=== PATIENT | male | born 1990 | race Caucasian/White ===

== ENCOUNTER 2017-12-31 21:55 | Inpatient (IN) | payer OTHER ==
[~2017-12-31] VITALS: Ht 190.5 cm; Wt 124.3 kg
[~2017-12-31 21:55] MED LIST: MOTRIN800 MG PO; VICODIN 300 MG-1 TAB PO
[2017-12-31 22:52] LABS: ABSOLUTE BASOPHIL COUNT 0.1 /CUMM (0.0-0.2); ABSOLUTE EOSINOPHIL COUNT 0 /CUMM (0.0-0.7); ABSOLUTE GRANULOCYTE CT 9.4 /CUMM (1.4-6.5); ABSOLUTE LYMPH COUNT 1.7 /CUMM (1.2-3.4); BASOPHIL % 0.8 % (0.0-2.0); EOSINOPHIL % 0.2 % (0-5); GRANULOCYTE % 76.7 % (42.2-75.2); HEMATOCRIT 43.7 % (42-52); MEAN CORPUSCULAR HGB 29.3 PG (27.0-31.0); MEAN CORPUSCULAR HGB CONC 33.7 G/DL (33.0-37.0); MEAN CORPUSCULAR VOLUME 87.1 FL (80.0-94.0); MEAN PLATELET VOLUME 8.9 FL (7.4-10.4); PLATELET COUNT 352 /CUMM (130-400); RBC DISTRIBUTION WIDTH 12.8 % (11.5-14.5); RED BLOOD CELL CT 5.02 /CUMM (4.70-6.10); WHITE BLOOD CELL COUNT 12.2 /CUMM (4.8-10.8)
--- NOTE | 2017-12-31 22:55 | ED PSYCHIATRIC COMPLAINT ---
History of Present Illness General Chief Complaint: Psychiatric Related Complaint Stated Complaint: +SI STATEMENTS AND ?DRANK ANTIFREEZE PER MOM Source: patient, family, old records Exam Limitations: no limitations Vital Signs & Intake/Output Vital Signs & Intake/Output Vital Signs Date Time Temp Pulse Resp B/P B/P Pulse O2 O2 Flow FiO2 Mean Ox Delivery Rate 01/01 1142 98.3 72 18 148/75 97 Room Air 01/01 1003 98.0 88 18 128/74 99 Room Air 01/01 0726 97.1 92 18 135/82 98 Room Air 12/31 2333 98.3 71 18 161/73 96 Room Air 12/31 2331 97 Room Air 12/31 2200 98.5 59 18 158/75 96 Room Air ED Intake and Output 01/01 0000 12/31 1200 Intake Total Output Total 100 Balance -100 Output, Urine 100 Patient 285 lb Weight Weight Reported by Patient Measurement Method Allergies Uncoded Allergies: WHOOPING COUGH VACCINE (SWELLING 12/23/13) Triage Note: PT TO ED C/O +SI THOUGHTS WITH NO PLAN, +HI THOUGHTS WITH NO PLAN "I WOULD KILL THE BAD PEOPLE" DENIES ETOH, BUT THEN STATES DOES NOT REMEMBER. MOM STATES "HE MAY OR MAY NOT HAVE DRANK ANTIFREEZE TODAY" WHEN ASKED IF HE DID, PT STATES "I DON'T REMEMBER" Triage Nurses Notes Reviewed? yes Onset: several months Duration: constant, continues in ED, getting worse Timing: recent history Severity: severe Associated Symptoms: impaired concentration, insomnia, suicidal ideation HPI: Patient suffers from autism. Several months prior to admission mother reports he has had increasing sadness feeling alone. 2 weeks prior to admission his mother notes his sadness is increased. Prior to admission she found him outside an empty bottle of antifreeze. He does not recall drinking the antifreeze. Mom reports he has had thoughts of suicide and killing bad people. He denies fever chills nausea vomiting diarrhea abdominal pain chest pain shortness breath headache dysuria rash bleeding hallucination. (Jackson Mendoza MD) Past History Travel History Traveled to [place] past 21 day No Medical History Any Pertinent Medical History? see below for history Respiratory: asthma Psychiatric: anxiety, depression Surgical History Surgical History: non-contributory Psychosocial History What is your primary language Guinean Tobacco Use: Never used ETOH Use: occasional use Illicit Drug Use: marijuana, MUSHROOMS Family History Hx Contributory? No (Jackson Mendoza MD) Review of Systems Review of Systems Constitutional: Reports: no symptoms. EENTM: Reports: no symptoms. Respiratory: Reports: no symptoms. Cardiovascular: Reports: no symptoms. GI: Reports: no symptoms. Genitourinary: Reports: no symptoms. Musculoskeletal: Reports: no symptoms. Skin: Reports: no symptoms. Neurological/Psychological: Reports: see HPI, anxiety, cognitive dysfunction, confusion, depressed, emotional problems. Hematologic/Endocrine: Reports: no symptoms. Immunologic/Allergic: Reports: no symptoms. All Other Systems: Reviewed and Negative (Jackson Mendoza MD) Physical Exam Physical Exam General Appearance: well developed/nourished, alert, awake, anxious, moderate distress, obese Head: atraumatic, normal appearance Eyes: Bilateral: normal appearance, PERRL, EOMI. 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 yes 1 Depression/Hopelessness? yes 2 Previous Attempts/Psych Care yes 1 Rational Thinking Loss? yes 2 Single//? yes 1 Organized/Serious Attempt yes 2 Social Support? has support 0 Stated Future Intent? yes 2 Total 11 SAD PERSONS Done? yes (Jackson Mendoza MD) Progress Differential Diagnosis: drug intoxication, drug overdose, drug withdrawal, electrolyte abnormality, hypoglycemia Plan of Care: Orders Procedure Date/time Status URINALYSIS 01/02 600 Active TSH REFLEX 01/02 600 Active LIPID PANEL 01/02 600 Active GLYCOSYLATED HGB 01/02 600 Active VITAMIN B12 01/02 600 Active Regular Diet 01/01 L Active Regular Diet 01/01 B Complete Patient Data - inpatient psych 01/01 1054 Active Admit to inpatient psych 01/01 1054 Active Continuous Observation Monitor 01/01 0640 Active Continuous Observation Monitor 01/01 0240 Active Vital Signs 01/01 UNK Active Activity/Ambulation 01/01 UNK Active Add-on Test (ER Only) 12/31 2324 Active Add-on Test (ER Only) 12/31 2310 Active Continuous Observation Monitor 12/31 224 Active ED CRISIS PSYCH CONSULT 12/31 224 Active URINE DRUG SCREEN FOR ER ONLY 12/31 2237 Complete URINALYSIS 12/31 2237 Complete ACETOMINOPHEN 12/31 2237 Complete SALICYLATE 12/31 2237 Complete ETHANOL 12/31 2237 Complete COMPREHENSIVE METABOLIC PANEL 12/31 2237 Complete CBC WITHOUT DIFFERENTIAL 12/31 2237 Complete ACETONE 12/31 2237 Complete LACTIC ACID 12/31 2229 Complete EKG 12/31 2217 Active Current Medications Sig/Lion Start time Last Medication Dose Stop Time Status Admin Benztropine Mesylate 1 MG Q6P PRN 01/01 1100 UNVr (Cogentin 1 MG Tablet) Benztropine Mesylate 1 MG Q6P PRN 01/01 1100 UNVr (Cogentin) Gabapentin 300 MG Q8 PRN 01/01 1100 UNVr (Neurontin) Haloperidol 5 MG Q6P PRN 01/01 1100 UNVr (Haldol) Haloperidol 5 MG Q6P PRN 01/01 1100 UNVr (Haldol) Hydroxyzine HCl 50 MG Q6P PRN 01/01 1100 UNVr (Atarax) Lorazepam 2 MG Q6P PRN 01/01 1100 UNVr (Ativan) Lorazepam 2 MG Q6P PRN 01/01 1100 UNVr (Ativan) Trazodone HCl 100 MG AT BEDTIME NEED.. 01/01 1100 UNVr (Desyrel) Risperidone 0.5 MG BID 01/01 1054 UNVr (risperiDONE) Laboratory Tests 12/31/17 2336: Ethylene Glycol NOT DETECTED, Methyl Alcohol, Quant NOT DETECTED, Isopropanol NOT DETECTED 12/31/17 2250: Urine Opiates Screen < 100, Methadone Screen < 40, Barbiturate Screen < 60, Ur Phencyclidine Scrn < 6.00, Amphetamines Screen < 100, U Benzodiazepines Scrn < 85, Urine Cocaine Screen < 50, Urine Cannabis Screen 7.20, Urine Color YEL, Urine Clarity HAZY H, Urine pH 6.0, Ur Specific [place] >= 1.030, Urine Protein NEG, Urine Ketones NEG, Urine Nitrite NEG, Urine Bilirubin NEG, Urine Urobilinogen 0.2, Ur Leukocyte Esterase NEG, Ur Microscopic SEDIMENT EXAMINED, Urine RBC 1-3, Urine WBC RARE, Ur Epithelial Cells RARE, Urine Bacteria FEW H, Urine Hemoglobin SMALL H, Urine Glucose NEG 12/31/17 2230: Anion Gap 8, Estimated GFR > 60, BUN/Creatinine Ratio 14.4, Glucose 94, Lactic Acid 0.8, Calcium 9.3, Total Bilirubin 0.6, AST 44, ALT 44, Alkaline Phosphatase 75, Total Protein 7.3, Albumin 4.3, Globulin 3.0, Albumin/Globulin Ratio 1.4, CBC w Diff NO MAN DIFF REQ, RBC 5.02, MCV 87.1, MCH 29.3, MCHC 33.7, RDW 12.8, MPV 8.9, Gran % 76.7 H, Lymphocytes % 14.1 L, Monocytes % 8.2, Eosinophils % 0.2, Basophils % 0.8, Absolute Granulocytes 9.4 H, Absolute Lymphocytes 1.7, Absolute Monocytes 1.0 H, Absolute Eosinophils 0, Absolute Basophils 0.1, Salicylates < 1.0, Acetaminophen < 10.0 L, Serum Alcohol < 10.0, Acetone Level NEGATIVE Hand-Off Endorsed To: Garland Loco MD Endorsed Time: 0700 Pending: consult Comments: Doubt ingestion of antifreeze, kidney function, electrolytes, anion gap, lactic acid normal. Urine flouresced under black light. Toxic alcohol panel sent to [facility] and negative. (Jackson Mendoza MD) Comments: 01/01/2018 7:55:55 AM patient signed out to me by Dr. 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 01/01/2018 1:47:31 PM patient will be admitted to inpatient psychiatry. (Beronica SWANSON,Garland Harris) Departure Departure Disposition: STILL A PATIENT Condition: Stable Referrals: Saul Huff MD (PCP/Family) Departure Forms: Customer Survey General Discharge Information (Jackson Mendoza MD) Departure Clinical Impression Primary Impression: Depression, major, recurrent, severe with psychosis Secondary Impressions: Autism (Beronica SWANSON,Garland Harris) Critical Care Note Critical Care Note Critical Care Time: 30-74 min (40) (Reji SWANSON,Jackson)
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
[2018-01-01 14:59] VITALS: BP 152/80
--- NOTE | 2018-01-01 16:38 | History & Physical ---
General Information and HPI MD Statement: I have seen and personally examined DAVID GARCIA and documented this H&P. The patient is a 27 year old M who presented with a patient stated chief complaint of depression. Source of Information: patient, old records Exam Limitations: no limitations History of Present Illness: 27 year old unmarried male who was transported to the [facility] after having made a mess at his home, where he lives with his mother and his step-father, and then drank anti-freeze. Mom stresses that patient has been espousing paranoid ideation, and indicating that people are watching him and are after him/them. Patient is suspicious of everything per mom. Mother feels that he may be taking drugs, but patient denies this, and tox screen is negative. Patient is alert and oriented x 3. Patient mood has changed throughout the morning, and he has grown more distrustful. Patient needs admission due to danger to self, and poor judgement. Other ROS negative. No fever, chills, headache, abdominal pain, chest pain. Allergies/Medications Allergies: Coded Allergies: Pertussis Vaccines (SWELLING 01/01/18) Home Med list No Known Home Medications Past History Travel History Traveled to [place] past 21 day No Medical History Neurological: NONE EENT: NONE Cardiovascular: NONE Respiratory: asthma Gastrointestinal: NONE Psychiatric: anxiety, depression Isolation History: Standard Surgical History Surgical History: non-contributory Past Family/Social History Psychosocial History ETOH Use: occasional use Illicit Drug Use: marijuana, MUSHROOMS Review of Systems Review of Systems Constitutional: Denies: no symptoms. EENTM: Denies: no symptoms, see HPI. Cardiovascular: Denies: no symptoms, see HPI. Respiratory: Denies: no symptoms, see HPI. GI: Denies: no symptoms, see HPI. Genitourinary: Denies: no symptoms, see HPI. Musculoskeletal: Denies: no symptoms, see HPI. Skin: Denies: no symptoms, see HPI. Neurological/Psychological: Reports: depressed. All Other Systems: Reviewed and Negative Exam & Diagnostic Data Last 24 Hrs of Vital Signs/I&O Vital Signs Date Time Temp Pulse Resp B/P B/P Pulse O2 O2 Flow FiO2 Mean Ox Delivery Rate 01/01 1459 99.5 69 152/80 01/01 1413 98.1 52 18 136/66 98 Room Air 01/01 1142 98.3 72 18 148/75 97 Room Air 01/01 1003 98.0 88 18 128/74 99 Room Air 01/01 0726 97.1 92 18 135/82 98 Room Air 12/31 2333 98.3 71 18 161/73 96 Room Air 12/31 2331 97 Room Air 12/31 2200 98.5 59 18 158/75 96 Room Air Intake & Output 08 1600 08/05 0800 08 0000 Intake Total Output Total 100 Balance -100 Output, Urine 100 Patient 124.284 kg 129.274 kg Weight Weight Reported by Patient Measurement Method Physical Exam General Appearance Alert, Oriented X3, Cooperative, No Acute Distress Skin No Rashes HEENT Atraumatic, PERRLA Neck Supple, No JVD Cardiovascular Regular Rate Lungs Normal Air Movement Abdomen Soft, No Tenderness Neurological Cranial Nerves II through XII: intact Last 24 Hrs of Labs/Mendo[place]: Laboratory Tests 12/31/17 2336: Ethylene Glycol NOT DETECTED, Methyl Alcohol, Quant NOT DETECTED, Isopropanol NOT DETECTED 12/31/17 2250: Urine Opiates Screen < 100, Methadone Screen < 40, Barbiturate Screen < 60, Ur Phencyclidine Scrn < 6.00, Amphetamines Screen < 100, U Benzodiazepines Scrn < 85, Urine Cocaine Screen < 50, Urine Cannabis Screen 7.20, Urine Color YEL, Urine Clarity HAZY H, Urine pH 6.0, Ur Specific [place] >= 1.030, Urine Protein NEG, Urine Ketones NEG, Urine Nitrite NEG, Urine Bilirubin NEG, Urine Urobilinogen 0.2, Ur Leukocyte Esterase NEG, Ur Microscopic SEDIMENT EXAMINED, Urine RBC 1-3, Urine WBC RARE, Ur Epithelial Cells RARE, Urine Bacteria FEW H, Urine Hemoglobin SMALL H, Urine Glucose NEG 12/31/17 2230: Anion Gap 8, Estimated GFR > 60, BUN/Creatinine Ratio 14.4, Glucose 94, Lactic Acid 0.8, Calcium 9.3, Total Bilirubin 0.6, AST 44, ALT 44, Alkaline Phosphatase 75, Total Protein 7.3, Albumin 4.3, Globulin 3.0, Albumin/Globulin Ratio 1.4, CBC w Diff NO MAN DIFF REQ, RBC 5.02, MCV 87.1, MCH 29.3, MCHC 33.7, RDW 12.8, MPV 8.9, Gran % 76.7 H, Lymphocytes % 14.1 L, Monocytes % 8.2, Eosinophils % 0.2, Basophils % 0.8, Absolute Granulocytes 9.4 H, Absolute Lymphocytes 1.7, Absolute Monocytes 1.0 H, Absolute Eosinophils 0, Absolute Basophils 0.1, Salicylates < 1.0, Acetaminophen < 10.0 L, Serum Alcohol < 10.0, Acetone Level NEGATIVE Assessment/Plan As Ranked By This Provider Problem List: 1. Depression, major, recurrent, severe with psychosis Miscellaneous Miscellaneous Documentation Attending Case Discussed With: Darien SWANSON,Arie Primary Care Physician: Saul Huff MD Patient sees these Specialists none Level of Patient Care: [facility] Attending MD Review Statement Attending Statement Attending MD Statement: examined this patient, discuss w/resident/PA/SUPERVISOR SLATE SPLITTING, agreed w/resident/PA/SUPERVISOR SLATE SPLITTING, discussed with family, reviewed EMR data (avail), discussed with nursing, discussed with case mgmt, reviewed images Attending Assessment/Plan: 27 o/m with no significant past medical history is admitted to [facility] for depression major episode with use of marijuana. Pyshciatry is following patient.
[2018-01-01 19:56] VITALS: BP 141/78
[2018-01-02 07:55] VITALS: BP 133/76
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
[2018-01-02 19:41] VITALS: BP 147/79
[2018-01-03 07:51] VITALS: BP 126/90
--- NOTE | 2018-01-03 09:11 | CP SOUTH PROGRESS NOTE PSYCH ---
Psych (Inpt) Progress Note Progress Note The patient's progress, inpatient treatment plan, and aftercare plans were discussed in the treatment planning meeting (team members: Corrine Lawrence LCSW; Steffanie Ravi RN; OTR/L, and Arie Ledezma MD, psychiatrist) Vital Signs Date Time Temp Pulse B/P 01/03 0751 98.0 71 126/90 01/02 194 98.7 89 147/79 Mental Status: Steady gait. Sports a sterling, Calm and cooperative. Normal psychomotor activity. No abnormal behaviors. talkative with mild pressure. constricted affect, Reported long standing depression since childhood. Denied suicidal ideation today. Denied homicidal ideation today. Denied hallucinations, but reported what sounded like auditory hallucinations when he was in the ED. occasionally feeling paranoid, there were some paranoid delusions during the interview, moderate thought disorder: very tangential and circumstantial. alert and oriented to time , place, and person. Patient seems to have some difficulties with attention concentration and information processing. No evidence of short-term memory impairment. Assessment Update: A 27-year-old single white male who was admitted to the inpatient psychiatric unit because of what seemed to be first psychotic break. Patient did not have any alcohol or substances in his system. There was some suspicion that the patient may have ingested antifreeze but there was nothing in his system and he denies doing that/does not remember doing that Diagnoses: Unspecified psychotic disorder Treatment Plan: Continue Risperdal 1 mg twice daily Average. Assets/Strengths Patient Identified Assets/Strengths: The patient is likable, honest, and has a supportive family. Impression/Plan Impression and Plan: 27-year-old single white male who was admitted to the inpatient psychiatric unit because of what seemed to be first psychotic break. Patient did not have any alcohol or substances in his system. There was some suspicion that the patient may have ingested antifreeze but there was nothing in his system and he denies doing that/does not remember doing that - Include all active medical diagnosis that require tx DSM 5 Diagnosis(es): Unspecified psychotic disorder - Initial Tx Plan for Active Psych & Medical Conditions Treatment Plan: Inpatient psychiatric care with safety checks every 15 minutes and Increase Risperdal to 1 mg twice daily Discontinue as needed gabapentin and replaced with as needed doses of Ativan 1 mg for anxiety and 2 mg for insomnia as needed Nursing assessments, vital signs, and patient education and Milieu therapy, group therapy, activities therapy Biopsychosocial assessment, collateral information, family meeting, and aftercare planning by social work Patient will be seen daily for medication monitoring as well as mental status examinations.
--- NOTE | 2018-01-03 10:46 | SOCIAL WORKER PROG NOTE PSYCH ---
Social Work Progress Note Progress Note Called Bob's Mother and scheduled a family meeting for Saturday 01/06 at 10: 30am. Bob and I met in the afternoon. He was wearing a towel around his neck and over his head ealier. I asked what the purpose of the towel was? He referenced a sci-fi book "Cory's Guide to the Galaxy" that stated you should always have a towel because they are a good tool basically. I asked if he was feeling safe on the unit? He said he feels a little paranoid about being here. He has had less trouble with another male peer, but feels he continues to stare in his room when he walks by. He shared that he feels he has had a case of "stolen identity" since he was at a [facility] 2 weeks ago. He said he felt suspicious of some of the people at the [facility] and felt that they were doing things intentionally to be mean to him. I asked if he drank or used drugs at this [facility]? He said he had drank a couple of beers and smoked some marijuana, that he thinks was laced with something. He says that because he had a reaction that he typically hasn't had when using marijuana. He said his heart was pounding and he felt like he was on speed or cocaine. He mentioned another incident with a friend where he felt they were in public and everyone was talking about him. He reports "I feel like I was pushed out of my normal frame of mind, for someone to put me on display." He reports his thoughts are going very fast, so fast that he can't keep up and sometimes loses them. I tried to tell him that hopefully the Risperdal that he is taking will help his thoughts and that he will start to feel better.
[2018-01-03 20:10] VITALS: BP 143/76
[2018-01-04 07:48] VITALS: BP 132/77
--- NOTE | 2018-01-04 13:10 | SOCIAL WORKER PROG NOTE PSYCH ---
Social Work Progress Note Progress Note Bob was seen wearing his pajamas around 12:45pm today. Approached him to ask if we could sit down and talk. He said no. I asked if everything was ok? As this was not the response I would have expected from him after the last 2 days of meeting with him. He said he was fine and asked why I asked. I told him he looked upset? He said he was enjoying his stay here. Which I thought was said in a sarcastic aloof tone. I asked if he was being sarcastic? He denied this and got up from his seat and walked away. He made a comment back to me about me posturing over him which caused him to feel uncomfortable. I was standing by him as he was sitting. I offered to sit down with him, for which he declined. He is pacing the unit. Mentioned this behavior to nursing and how he seemed a bit more out of character. Called [facility] for continued stay. 2 night authorized with review on 01/06.
--- NOTE | 2018-01-04 14:34 | CP SOUTH PROGRESS NOTE PSYCH ---
Psych (Inpt) Progress Note Progress Note The patient's progress, inpatient treatment plan, and aftercare plans were discussed in the treatment planning team-meeting (team members: Corrine Lawrence LCSW; RN; OTR/L, and Arie Ledezma MD, psychiatrist) Vital Signs: Date Time Temp Pulse B/P 01/04 0748 96.3 82 132/77 According to the nursing report, the patient refused to take Risperdal last night and he refused to take Risperdal this morning. Mental Status: The patient continues to have a moderate thought disorder (tangential and circumstantial). OCD-spectrum (checking-rechecking, counting, re-reading, obsessive deliberation He is calm and cooperative, shows normal psychomotor activity, no abnormal behaviors. He is talkative with mild pressure. He reports long standing depression since childhood. The patient denies suicidal ideation, denies homicidal ideation. Pt. denies hallucinations, but reports what sounds like auditory hallucinations, occasionally feeling paranoid, there were some paranoid delusions during interview, alert and oriented to time, place, and person. The patient seems to have some difficulties with attention, concentration, and information processing. No evidence of short-term memory impairment. Assessment Update: A 27-year-old single white male who was admitted to the inpatient psychiatric unit in what seems to be a first psychotic break. The patient did not have any alcohol or substances in his system. He reported using marijuana approximately 2 weeks prior to ED presentation. There was some suspicion that the patient may have ingested antifreeze but there was nothing in his system and he denies doing that/does not remember doing that (? may have spoken about it or threatened to do it). Diagnostic Update (01/04/2018): Unspecified Psychotic disorder: to R/O Scizophreniform Disorder, to R/O Substance-Induced Psychotic Disorder Treatment Plan: D/C Risperdal (patient refuses to consider taking it because he read that it may cause breast development in males; I did explain that risk and the risk of prolactinemia and that we can monitor for that but the patient would not hear of it) I given a printout about Zyprexa/olanzapine. I ordered Zyprexa 5 mg at bedtime
[2018-01-04 19:56] VITALS: BP 144/81
[2018-01-05 07:46] VITALS: BP 129/68
--- NOTE | 2018-01-05 11:54 | SOCIAL WORKER PROG NOTE PSYCH ---
Social Work Progress Note Progress Note I Ed Bland ([facility]), along with PA student, and Doctor Darien met with Bob today. He was wearing scrubs and appeared well groomed. His affect was positive and he was engaged during the session. He reported having a good night last night. He expressed preparing to go to [employer]. He feels that he need a safe place that gives enough space that allows him to plan and organize to help him succeed in school. He does not believe that his room is enough. Bob thinks people are mainly good and has a desire to help people. He was not sure of the career path that he wants to pursue. The topic of his employment was discussed. Bob has left a few jobs due reasons that include lack of structure, and not enough employees working. He mentioned that his mother is a social support for him. He identified having different eating preference than his mother and boyfriend. He describe the home environment as somewhat chaotic as evidence by him describing how the organization with in the house bothers him. He trusts his mother and believes she has good intentions. Bob described a specific situation in which his mom wa under the impression that he wanted a rabbit when the patient did not find the pet beneficial especially since finances are a stressor for the family. Medications were discussed with Bob since he was hesitant to take medications. The rationale behind this was he is concerned about his weight and stated he has been actively trying to lose weight. He did not want to refuse meds because he expressed they are helping him think clearly.
--- NOTE | 2018-01-05 13:25 | CP SOUTH PROGRESS NOTE PSYCH ---
Psych (Inpt) Progress Note Progress Note The patient's progress, inpatient treatment plan, and aftercare plans were discussed in the treatment planning team-meeting (team members: Corrine Lawrence LCSW; RN; OTR/L, and Arie Ledezma MD, psychiatrist) Mental Status: The patient is thought-disordered (over-detailed speech, tangential and very circumstantial). He is talkative with mild pressure. Obsessive thoughts and described compulsive rituals (at home), (e.g. checking- rechecking, counting, re-reading, counting). He is calm, cooperative, shows normal psychomotor activity, no abnormal behaviors. The patient denies suicidal ideation, denies homicidal ideation. Pt. denies hallucinations, occasionally feeling paranoid, there were no specific paranoid delusions during interview. pt. is alert and oriented to time, place, and person. The patient seems to have some difficulties with attention, concentration, and information processing. Assessment Update: Pt. is a 27-year-old single white male who was admitted to the inpatient psychiatric unit in what seems to be a first psychotic break. Since his admission to the inpatient psychiatric unit at [facility], the patient has denied any thoughts, plans, or urges of self-harm. He took his first dose of Zyprexa last night after much encouragement encouragement from the nursing staff. He is still on the fence regarding whether he is going to seek treatment or taken medication after discharge or not. There is a family meeting slated to take place tomorrow morning Diagnostic Update (01/04/2018): Unspecified Psychotic disorder: to R/O Scizophreniform Disorder, to R/O Substance-Induced Psychotic Disorder Treatment Plan: Zyprexa 5 mg at bedtime Continue PRN doses of Ativan for anxiety and as needed doses of Ativan for insomnia
[2018-01-05 20:05] VITALS: BP 123/83
[2018-01-06 07:40] VITALS: BP 124/78
--- NOTE | 2018-01-06 10:21 | CP SOUTH PROGRESS NOTE PSYCH ---
Psych (Inpt) Progress Note Progress Note The patient's progress, inpatient treatment plan, and aftercare plans were discussed in the treatment planning team-meeting (team members: Corrine Lawrence LCSW; RN; OTR/L, and Arie Ledezma MD, psychiatrist) Family meeting with the patient and his mother and the presence of Corrine Lawrence LCSW and social work risk intern, Ed Mental Status: The patient is thought-disordered (over-detailed speech, tangential and very circumstantial). He is talkative with mild pressure. Obsessive thoughts and described compulsive rituals (at home), (e.g. checking-rechecking, counting, re- reading, counting). He is calm, cooperative, shows normal psychomotor activity, no abnormal behaviors. The patient denies suicidal ideation, denies homicidal ideation. Pt. denies hallucinations, occasionally feeling paranoid, there were no specific paranoid delusions during interview. pt. is alert and oriented to time, place, and person. The patient seems to have some difficulties with attention, concentration, and information processing. Assessment Update: Pt. is a 27-year-old single white male who was admitted to the inpatient psychiatric unit in what seems to be a first psychotic break. Since his admission to the inpatient psychiatric unit at [facility], the patient has denied any thoughts, plans, or urges of self-harm. He took his first dose of Zyprexa the night of 01/04/2018 after much encouragement encouragement from the nursing staff. Diagnostic Update (01/04/2018): Unspecified Psychotic disorder: to R/O Scizophreniform Disorder, to R/O Substance-Induced Psychotic Disorder Treatment Plan: He is tolerating Zyprexa so far, no significant morning-after sedation, worried about weight gain which was a legitimate fear discussed in the family meeting Increase Zyprexa to 7.5 mg at bedtime Continue PRN doses of Ativan for anxiety and as needed doses of Ativan for insomnia
--- NOTE | 2018-01-06 11:53 | SOCIAL WORKER PROG NOTE PSYCH ---
Social Work Progress Note Progress Note Bob's Mother came in for a family meeting today. Dr. Ledezma was also part of this meeting as well as Ed Bland ([employer] diversity intern). Mom shared some history regarding and development. There didn't seem to be anything abnormal other than mentioning he needed some oxygen at after delivery. He was described as extremely shy as a child and sensative to emotions. There was also a fall at 18 months, but there was no confirmed medical issue resulting. Mom thinks Grandmother may have had a severe mental illness, but she couldn't confirm. Mom shared that Bob had been having some suicidal thoughts a few months back. She never thought he would act on it, she feels that the ingestion of antifreeze was a cry for help and not an intent to end his life. She did not witness any ingestion, but stated that he had a test confirmed in the ER. Bob does not recall ingesting it. Mom described some bizarre behaviors starting 2 weeks ago. She said he was moving things around at the house that didn't make sense. I asked Bob if he remembered this? He said he does and said he was doing it because he didn't want to "feel stuck." Talked about medication in combination with therapy needing to be the best course of treatment right now. Suggested IOP as a step down from inpatient. Bob seemed on board with that plan, but shared concerns over work, starting school, and doing IOP. 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 Bob also decided to withdrawal from school for now. There is a deadline this month that he is supposed to withdrawal by. Let Bob know that we will continue to work with him into next week to see how he is doing and plan an exact discharge date next week. Dr. Ledezma plans to increase his dose of Zyprexa. Bob was in agreement. Called Christina at [facility] and left updated clinical for continued stay.
[2018-01-06 20:35] VITALS: BP 141/83
[2018-01-07 08:07] VITALS: BP 148/71
--- NOTE | 2018-01-07 16:39 | CP SOUTH PROGRESS NOTE PSYCH ---
Psych (Inpt) Progress Note Progress Note Include the following elements, when applicable: Involvement in the active treatment of the patient with behavioral observations of the patient and the patient's response to the treatment. Review of the ongoing treatment process in the context of the treatment plan. Indication of how multi-disciplinary staff members are carrying out the treatment plan. Plans for future interventions and recommendations for revision of the treatment plan. Liaison with other physicians/providers. Progress Note: Case discussed in AM with charge nurse. Pt has been visible in the unit. Preocuppied about SE meds but cooperating with care. Uopn assesment pt found to be anxious and engaging in a long winded discussion about his goals for life. Feels better in general. Acknowledges medication has helped with " thougth organization" Regular pattern sleep and appetite. Denies any SE. OCncerned more about correction effects of medication. Unclear about his aftercare plans. MSE Young disheveled WM. Fair eye contact. Anxious but cooperative. No SI/HI .NO AVH. some levle of thougth disroganization still with tangentiality at times. Cog AAox3 I/J Fair. A/P 27 y/o WM MDD with psy fea vs Schizoaffective dx. Improving stil lwith some level of thought disorganization. COntinue same medication regimen for now.
[2018-01-07 20:06] VITALS: BP 146/72
[2018-01-08 08:05] VITALS: BP 126/72
--- NOTE | 2018-01-08 14:18 | CP SOUTH PROGRESS NOTE PSYCH ---
Psych (Inpt) Progress Note Progress Note Include the following elements, when applicable: Involvement in the active treatment of the patient with behavioral observations of the patient and the patient's response to the treatment. Review of the ongoing treatment process in the context of the treatment plan. Indication of how multi-disciplinary staff members are carrying out the treatment plan. Plans for future interventions and recommendations for revision of the treatment plan. Liaison with other physicians/providers. Progress Note: Chaim today feels good. Had visitors yesterday which he enjoyed. Slept well. Tolerating Zyprexa well. Feels " he is thinking more clear" mood is optimistic. Wants to go to school in the fall. Visible in the unit. Likes coloring. MSE YOung male. Fairly groomed. Fair eye contact cooperative. Less anxious today. No SI/HI .No AVH More linear today. Cog AAox3 I/J Fair. A/P 27 y/o WM MDD with psy feat. vs schizoaffective. Improving. Continue same tx plan.
--- NOTE | 2018-01-08 18:22 | IP INCIDENTAL NOTE PSYCH ---
Incidental Note Notation: Pt today in afternoon rigth after this group underwriter left became more intrusive and focused on a female peer. Became agitated after limits were set but was able to calm down without medication. An hour later similar dynamics ensue and pt had to be given oral Haldol, COgentin and Ativan. Pt induced vomit righ after med admon. Nursing offered earlier dose of Zyprexa. Per discussion with nursing staff pt has been voicing delusional statements to other peers. Erotomanic nature. Pt most likely would benefit from increased dose of Zyprexa. Since incident happened after this group underwriter left. Pt needs some discussion with provider around increased dose of antipsychotic. Will order Zyprexa 5 mg QD PRN agitation for now.
[2018-01-08 19:54] VITALS: BP 144/67
--- NOTE | 2018-01-08 20:46 | IP INCIDENTAL NOTE PSYCH ---
Incidental Note Notation: Pt remains highly agitated will be receiving Haldol 5 mg IM/Ativan 2 mg IM and Cogentin 1 mg IM. A sitter will be started.
--- NOTE | 2018-01-09 08:54 | CP SOUTH PROGRESS NOTE PSYCH ---
Psych (Inpt) Progress Note Progress Note The patient's progress, inpatient treatment plan, and aftercare plans were discussed in the treatment planning team-meeting (team members: Corrine Lawrence LCSW; RN; OTR/L, and Arie Ledezma MD, psychiatrist) Vital Signs Date Time Temp Pulse B/P O2 01/09 1015 97.0 77 133/77 01/08 1954 97.3 78 144/67 Chaim is tolerating Zyprexa well. Feels that he is "thinking more clear" , however, he continues to be thought disordered mood is optimistic. Wants to go to school in the fall. Visible in the unit. Likes coloring. Fairly groomed. Fair eye contact cooperative. Less anxious today. No SI/HI . No AVH More linear today. Cog AAox3 I/J Fair. Assessment: 27 y/o WM MDD with psy feat. vs schizoaffective. Improving. Plan: Increase Zyprexa to 5 mg BID Continue same tx plan.
[2018-01-09 10:15] VITALS: BP 133/77
--- NOTE | 2018-01-09 15:51 | SOCIAL WORKER PROG NOTE PSYCH ---
Social Work Progress Note Progress Note TC- Christina/ISAIAS PH# [phone] - LEFT CLINICAL.- asked for call back with AUTH to Corrine Lawrence LCSW. Met with Patient he denied SI/HI, no AH/VH. He was in bed and a sitter was outside his door. He willingly came out of his room to sit in group room. He was dressed in scrubs. He stated "I am working on actualizing myself." He stated he accomplished the one thing he wanted to do today. Asked him what that was, he stated "finished drawing my picture." He did seem to ramble a bit - and thoughts seemed to be fairly clear - he was obsessive about other peers on the unit. Tried to encourage him to focus on his treatment goals and what brought him into the hospital. He stated his appetite is good, slept well - but he stated he was "restless." He rates anxiety 3/10(worst) and depression 4.5/10.
[2018-01-09 20:04] VITALS: BP 127/93
[2018-01-10 07:44] VITALS: BP 141/77
--- NOTE | 2018-01-10 11:21 | SOCIAL WORKER PROG NOTE PSYCH ---
Social Work Progress Note Progress Note SW met with the patient and Dr. Ledezma for the daily assessment. The patient presented alert and oriented and calm and cooperative. He reports that his depression is doing better. The patient reports that he has been taking his medication and slept well last night, "waking up well rested." He states that he is not feeling helpless or hopeless and instead feels "motivated." He states that he is not having any suicidal thoughts and no thoughts of wanting to be . He states that he his focused on his time management and was working out this AM; doing laps, planks and push ups. When asked about his discharge plan, he states that he is unsure about IOP and is thinking about doing "[employer]," stating some of his friends thought that would be a good idea for him. He states that he would like to make sure that his medication management is taken care of, as he believes that mediations are important for him. He states that he will continue to think about IOP and discuss with his family welfare social work professor, Corrine Rock tomorrow.
--- NOTE | 2018-01-10 12:26 | CP SOUTH PROGRESS NOTE PSYCH ---
Psych (Inpt) Progress Note Progress Note The patient's progress, inpatient treatment plan, and aftercare plans were discussed in the treatment planning team-meeting (team members: Corrine Lawrence LCSW + Elba Ball LCSW; RN; OTR/L, and Arie Ledezma MD, psychiatrist) Vital Signs: Vital Signs Date Time Temp Pulse B/P B/P Pulse O2 O2 Flow FiO2 01/11 744 96.6 76 141/77 01/10 2004 98.6 90 127/93 Chaim is tolerating Zyprexa, denies side effects, he feels that he is "thinking more clear" , however, he continues to have a thought disorder (with some improvement) He says he is not that depressed, his mood is "optimistic" and denies feeling hopeless about life Visible in the unit. Fairly groomed. Fair eye contact, cooperative. Less anxious and denies thinking of suicide, denies thinking of violence or homicide and denies hallucinations ?? whether he is hallucinating or not ?? He was alert and oriented. Assessment Update: 27 y/o WM MDD with psy feat. vs schizoaffective. Patient's thoughts disorder is improving/he is less disorganized. Treatment Plan Update: Continue same medications Olanzapine 5 MG BID 01/09 2100 AC PO
--- NOTE | 2018-01-10 17:19 | SOCIAL WORKER PROG NOTE PSYCH ---
Social Work Progress Note Progress Note Left Christina Gamez a voicemail asking for an update on authorization as I did not hear back today. Her voicemail indicated that she was not in the office today.
[2018-01-10 20:07] VITALS: BP 155/83
[2018-01-11 07:32] VITALS: BP 159/86
--- NOTE | 2018-01-11 13:56 | CP SOUTH PROGRESS NOTE PSYCH ---
Psych (Inpt) Progress Note Progress Note The patient's progress, inpatient treatment plan, and aftercare plans were discussed in the treatment planning team-meeting (team members: JUNIOR MECHANICAL ENGINEER; RN; OTR/L, and psychiatrist) Vital Signs: Date Time Temp Pulse B/P O2 01/11 0732 96.9 95 159/86 01/10 2007 98.7 98 155/83 Chaim was alert & oriented to time, place, and person. He reported that he is tolerating Zyprexa, denies side effects, he feels that he is thinking more clearly. Chaim, however, continues to have a thought disorder (with some improvement). He says he is not that depressed, his mood is "optimistic" and denies feeling hopeless about life. Chaim was visible on the unit, showing good eye contact, cooperative, and less anxious. He denied wishing and denied thinking of suicide, Chaim denies thinking of violence or homicide and denies hallucinations. I question whether he is hallucinating or not (e.g. talking to self, he siad he was "venting to the vent", denied that he was hearing someone through the vent) Assessment Update: Chaim Rivera (: ) is a 27 y/o WM MDD with psy feat. vs schizoaffective. Patient's thought disorder is improving/slightly less disorganized. Treatment Plan Update: Change Zyprexa to 10 mg at bedtime
--- NOTE | 2018-01-11 16:59 | SOCIAL WORKER PROG NOTE PSYCH ---
Social Work Progress Note Progress Note Bob is reporting clearer thoughts. He feels more organized. He is navigating social interactions on the unit and feels it has been helpful in pushing him outside of his comfort zone. He is working on small goals thoughout the day like waking up early, taking a shower, exercise. He plans on looking for new work when he leaves here. He doesn't feel that working at the [employer] is a good fit for him. He would like to do something more phsyically active. We talked about IOP and how that would be a supportive next step from inpatient. He is considering it and said he would like to talk to someone from the IOP program to find out more. Gave him positive feedback for working on his goals while here. He feels ready to leave the hospital soon. Called Christina at [facility] [phone] to give updated clinical for continued stay. She is authorizing 2 units with review on 01/13, but stated if he needs past Tuesday it would most likely go to a doc to doc review.
[2018-01-11 19:58] VITALS: BP 158/78
[2018-01-12 07:53] VITALS: BP 122/70
--- NOTE | 2018-01-12 13:07 | CP SOUTH PROGRESS NOTE PSYCH ---
Psych (Inpt) Progress Note Progress Note The patient's progress, inpatient treatment plan, and aftercare plans were discussed in the treatment planning team-meeting (team members: PHYSICIAN SURGEON; RN; OTR/L, and psychiatrist) Vital Signs: Vital Signs Date Time Temp Pulse B/P B/P Pulse O2 FiO2 01/12 0753 96.9 89 122/70 01/11 1958 98.7 68 158/78 Chaim was alert & oriented to time, place, and person. He reported that he is tolerating Zyprexa and denies any significant side effects. Although her feels that he is thinking clearly, he continues to have a significant thought disorder. He says he is not that depressed, his mood is "optimistic" and denies feeling hopeless about life. Chaim was visible on the unit, showing good eye contact, cooperative, and less anxious. He denied wishing and denied thinking of suicide, Chaim denies thinking of violence or homicide He denied hallucinations Assessment Update: Chaim Rivera (: ) is a 27 y/o WM MDD with psy feat. vs schizoaffective. Patient's thought disorder is improving/slightly less disorganized. Treatment Plan Update: continue Zyprexa 10 mg at bedtime
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
[2018-01-12 20:15] VITALS: BP 141/78
[2018-01-13 07:34] VITALS: BP 127/61
--- NOTE | 2018-01-13 09:13 | CP SOUTH PROGRESS NOTE PSYCH ---
Psych (Inpt) Progress Note Progress Note The patient's progress, inpatient treatment plan, and aftercare plans were discussed in the treatment planning team-meeting (team members: CASINO CASHIER MANAGER; RN; OTR/L, and psychiatrist) Vital Signs: Temp: 97.4; Pulse: 67/min; BP: 127/61mmHg Bob was alert & oriented to time, place, and person. He continues to have a thought disorder. He feels that he is thinking clearly because of Zyprexa (?), he reported that he is tolerating Zyprexa and denies any significant side effects. Bob says he is not that depressed, his mood is "optimistic" and denies feeling hopeless about life. He denied wishing and denied thinking of suicide, Chaim denies thinking of violence or homicide He denied hallucinations, he has odd beliefs/odd use of language and (may be) some paranoia (?digital surveilance)-nothing very specific talks in global statements and excessive abstractions about "digital footprint", when asked about short-term goals he responds with short-term goals for the planet and humanity Assessment Update: Bob Rivera (: 1990) is a 27-year-old single white male who was admitted on 01/01/2018 because of disorganized thoughts and behaviors. Patient's thought disorder is improving/slightly less disorganized. Diagnostic Update (01/13/2018): Unspecified Psychotic Disorder (the differential includes Schizophreniform Disorder, Substance-Induced Psychotic Disorder, or Schizophrenia) Treatment Plan Update: continue Zyprexa 10 mg at bedtime
--- NOTE | 2018-01-13 13:37 | SOCIAL WORKER PROG NOTE PSYCH ---
See Addendum Social Work Progress Note Progress Note Ed Paul, FINISHED METAL REPAIRER student and I called Christina[facility] [phone] and left a voicemail with clinical to request continued stay through the weekend. PLan for IOP for aftercare. Waiting for call back for AUTH. Ed will fax over IOP transfer, and schedule intake appointment. Lance has a $400 copay for IOP. Patient's Mother, Carolyn Rivera called and stated Lance has a $4,000 deductible for inpatient. She stated "Lance has no way to pay for this." She wanted him to apply for [employer]. Informed Ms. Rivera that he needs to jarrell; [employer] to see if he qualifies for [employer] [employer] [facility]. Ed Paul, FINISHED METAL REPAIRER information systems planner will call [employer] PH#[phone] with Lance to get information he needs in order to see if he qualifies. His Mother wants to call with him later this afternoon and will bring in any information he needs to apply. Follow-up care may be an issue due to deductible (IOP).
--- NOTE | 2018-01-13 19:39 | SOCIAL WORKER PROG NOTE PSYCH ---
Social Work Progress Note Progress Note Per Ed Paul , CLEARING DISTRIBUTION CLERK drama therapist she called [facility] with Chaim and applied for Kendra Johnson. He was approved. He will be off his Mother's insurance in a month - end of January 2018 because he will be 28yrs old. Also his Mother's insurance has very high deductibles. SW - please inform [facility] of Kendra pending.
[2018-01-13 20:01] VITALS: BP 142/94
[2018-01-14 07:56] VITALS: BP 145/85
[2018-01-14 19:26] VITALS: BP 157/93
[2018-01-15 07:39] VITALS: BP 138/81
--- NOTE | 2018-01-15 10:06 | CP SOUTH PROGRESS NOTE PSYCH ---
Psych (Inpt) Progress Note Progress Note Include the following elements, when applicable: Involvement in the active treatment of the patient with behavioral observations of the patient and the patient's response to the treatment. Review of the ongoing treatment process in the context of the treatment plan. Indication of how multi-disciplinary staff members are carrying out the treatment plan. Plans for future interventions and recommendations for revision of the treatment plan. Liaison with other physicians/providers. Progress Note: Patient seen and evaluated on 01/14/18 for this note, did not save yesterday. Pleasant, talkative. Made numerous, difficult to follow statements about his digital footprint, referential statements, etc ex, stated that he is a person who hides in plain sight, I am a good socially responsible investment adviser of other peoples character and then focused on a visitor who introduced himself to him, and Bob said the man parades himself as high society, claiming to be for the growth of everybody but really only for the people he sees value in, for reasons beyond what people see in them, he purchased my digital footprint, I could see it in his face, his tone. He made numerous other disorganized, referential statements. Did not take any of my social cues, such as interruptions to clarify, ex when I asked him to slow down and he said it is difficult to follow him, he continued without a pause to speak about his digital footprint. Other statements, such as youre much older than me, its difficult to explain and odd way of shaking my hand; overall poor social cues. He did admit that he is very robotic and wants to get his statements out as quickly as he can. Had been sleeping, eating well, no appetite for breakfast this morning but overall eating without issue. No issues with olanzapine. MSE: overweight young man, fair to poor grooming. No psychomotor changes. his speech is normal volume and rapid rate at times. His eye contact is fair. Mood is neutral, affect is constricted. Thought process is long winded, tangential, disorganized. He makes many abstract, overinclusive of detail statements, using coined phrases and overall very odd speaking demeanor. He has no gross paranoia however speaks about a visitor who has purchased part of my digital footpring, I could see it in his face, his tone, his smile he introduced himself as Raymon like [employer], its a website that I used to frequent. Not internally preoccupied and not hallucinating. No evidence of thoughts to harm self/others. insight and judgment overall impaired. A: 27 year old man with recent onset psychotic sx, appears to me to have impaired social cues ?PDD traits associated with his psychosis? (10 is a good number for his olanzapine dose, among other statements) And odd interactions overall. He had some difficult behavior, sexual inappropriate behavior in the week, receiving IM medications, and overall psychosis appears to be improving. Plan: continue current medications, groups, milieu therapy. Discussed medications and he said he would consider adjustments over next several days. risk appears to be improving as he is agreeable to treatment and no doing better on the unit.
--- NOTE | 2018-01-15 10:12 | CP SOUTH PROGRESS NOTE PSYCH ---
Psych (Inpt) Progress Note Progress Note Include the following elements, when applicable: Involvement in the active treatment of the patient with behavioral observations of the patient and the patient's response to the treatment. Review of the ongoing treatment process in the context of the treatment plan. Indication of how multi-disciplinary staff members are carrying out the treatment plan. Plans for future interventions and recommendations for revision of the treatment plan. Liaison with other physicians/providers. Progress Note: Pleasant and less tangential/long winded comapred to yesterday. Said that he slept well except waking up once overnight. Not speaking about his digital footprint as he had been focused on yesterday. 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 Still makes odd statements, "I have a memory that is good at studying new materials, keywording, pulling to the front the materials that are sun..." but less bizarre compared to yesterday. Writing letters to people, made some insightful comment that "I feel like I talk differently than most people do" and that he will have peer review the letters prior to sending them to make sure that they do not sound strange. No issues overall. MSE: overweight young man, fair grooming. He has adequate eye contact. Poorly related, speaks at me overall. No psychomotor changes, no tic or tremor. His speech is normal volume, normal rate. His mood is good and affect is constricted and stable. His thinking is less disorganized than yesterday and less tangential. He does not discuss the bizarre statements he was focused on yesterday. He still has odd manner of speaking, robotic, with coined phrases at times. Not internally preoccupied and not hallucinating. No evidence of thoughts to harm self/others. insight and judgment overall impaired. A: 27 year old man with recent onset psychotic sx, appears to me to have impaired social cues ?PDD traits or just odd mannerisms/demeanor associated with his psychosis? He has been stabilizing overall with less focus on "digital footprints" and other eccentric/peripheral type beliefs he has. Plan: continue current medications, groups, milieu therapy. Risk of harm to self /others lowered due to stabilizing clinically overall, despite residual symptoms.
[2018-01-15 19:59] VITALS: BP 145/80
[2018-01-16 07:39] VITALS: BP 123/65
[2018-01-16] MEDS ORDERED: OLANZAPINE10 M1 PO (08:53)
[2018-01-16] MEDS ORDERED: ATIVAN1 M1 PO (08:53)
--- NOTE | 2018-01-16 08:55 | Patient Discharge Instructions ---
Psych Discharge Inst General Discharge Information Reason for Admission: disorganized thinking Psy Discharge Primary Diag+ Unspecified Psychotic DO Summary Tests/Major Procedures Lab Cholesterol 145 MG/DL 01/02/18 0650 HDL Cholesterol 41 mg/dL 01/02/18 0650 Hemoglobin A1c 4.9 % 01/02/18 0650 LDL Cholesterol, Calc 92 mg/dL 01/02/18 0650 Triglycerides 64 mg/dL 01/02/18 0650 Studies Pending at DC: None Patient Instructions Contact Information Your Psychiat[facility] on [facility] was Arie Ledezma MD * If you are experiencing an emergency related to this hospitalization, please call [phone] to contact the treating psychiatrist or the psychiatrist-on- call. * To Request a copy of your medical records, please contact the Medical Records Department at [phone]. * To request results of studies pending at the time of discharge, please call [phone]. * Continue your Medications until directed to stop by your Healthcare provider. General Medication Information Please continue to take your new medications and your continued home medications , unless otherwise indicated on your discharge medication list, or unless directed by your MD or SENIOR QUALITY ASSURANCE ENGINEER to stop them. Special Instructions Diet Regular Activity Normal - Tobacco Use Treatment Offered Post DC Medications Offered: Not Applicable Post DC Tobacco Treatment Plan: Not Applicable - EtOH/Drug Use D/O Treatment Offered Post DC Medications Offered: NA-No EtOH/Drug Use D/O Post DC EtOH/SubAbuse TX Plan: NA-No EtOH/Drug Use D/O Metabolic Screening Patient on a neuroleptic(s) . BMI: 34.200 Blood Pressure: 123/65 Laboratory Results From [facility] (If applicable): Lab Cholesterol 145 MG/DL 01/02/18 0650 HDL Cholesterol 41 mg/dL 01/02/18 0650 Hemoglobin A1c 4.9 % 01/02/18 0650 LDL Cholesterol, Calc 92 mg/dL 01/02/18 0650 Triglycerides 64 mg/dL 01/02/18 0650 Advance Directives Does the Patient have Medical Advance Directives No/Refused further info Does Pt have Psychiatric Advance Directives? No/Refused further info Does Patient have a Designated Surrogate Decision Maker: No Information About Psychiatric Advance Directives Provided? Refused Discharge Plan Post Hospital Treatment Plan: GH-IOP
--- NOTE | 2018-01-16 11:48 | CP SOUTH PROGRESS NOTE PSYCH ---
Psych (Inpt) Progress Note Progress Note I reviewed Dr. Salvador's notes for the weekend of 01/14 and 01/15 The patient's progress, inpatient treatment plan, and aftercare plans were discussed in the treatment planning team-meeting (team members: SALES AMBASSADOR; RN; OTR/L, and psychiatrist) Vital Signs: Vital Signs Date Time Temp Pulse B/P B/P Pulse O2 FiO2 01/16 0739 97.8 65 123/65 01/15 1959 98.3 73 145/80 Bob continues to have a thought disorder. However, he shows relative improvement. He denied hallucinations, has odd beliefs/odd use of language and (may be) some paranoia -nothing very specific Making less global statements and excessive abstractions, He was alert & oriented to time, place, and person. He reported that he is planning to do GH-IOP tolerating Zyprexa/denies any significant side effects. Bob says that his mood is not that depressed, denies feeling hopeless about life. He denied wishing and denied thinking of suicide. Chaim denies thinking of violence or homicide. Assessment Update: Bob Rivera (: 1990) is a 27-year-old single white male who was admitted to the inpatient psychiatric unit at [facility] on 01/01/2018 because of disorganized thoughts and behaviors. Patient's thought disorder is improving/slightly less disorganized. Diagnosis (last update on 01/13/2018): Unspecified Psychotic Disorder (the differential includes Schizophreniform Disorder, Substance-Induced Psychotic Disorder, or Schizophrenia spectrum) Treatment Plan Update: D/C Home to F/U with GH-IOP
--- NOTE | 2018-01-16 12:02 | SOCIAL WORKER PROG NOTE PSYCH ---
See Addendum Social Work Progress Note Progress Note SW left voice mail with Christina/[facility] notifying for pt discharge today and request for authorization for IOP. Requested call back.
--- NOTE | 2018-01-16 12:11 | DISCHARGE SUMMARY REPORT-PSYCH ---
Visit Information Visit Dates/Diagnosis' Admission Date: 01/01/18 Discharge Date: 01/16/18 Reason for Admission: disorganized thinking Psy Discharge Primary Diag: Unspecified Psychotic DO Hospital Course Significant Lab Findings: Lab Cholesterol 145 MG/DL 01/02/18 0650 Cholesterol/HDL Ratio 4 % 01/02/18 0650 HDL Cholesterol 41 mg/dL 01/02/18 0650 Hemoglobin A1c 4.9 % 01/02/18 0650 LDL Cholesterol, Calc 92 mg/dL 01/02/18 0650 Triglycerides 64 mg/dL 01/02/18 0650 Course Complications: Patient did not have any complications while he was on the inpatient psychiatric unit. Consultations: Patient had a history and physical examination when he was on the inpatient psychiatric unit. Please refer to the patient's electronic health record for the details of the H&P. Allergies: Coded Allergies: Pertussis Vaccines (SWELLING 01/01/18) Hospital Course/TX Response: 01/02/2018 Impression and Plan: 27-year-old single white male who was admitted to the inpatient psychiatric unit because of what seemed to be first psychotic break. Patient did not have any alcohol or substances in his system. There was some suspicion that the patient may have ingested antifreeze but there was nothing in his system and he denies doing that/does not remember doing that Diagnosis(es): Unspecified psychotic disorder Initial Treatment Plan: Inpatient psychiatric care with safety checks every 15 minutes and Increase Risperdal to 1 mg twice daily Discontinue as needed gabapentin and replaced with as needed doses of Ativan 1 mg for anxiety and 2 mg for insomnia as needed Nursing assessments, vital signs, and patient education and Milieu therapy, group therapy, activities therapy Biopsychosocial assessment, collateral information, family meeting, and aftercare planning by social work Patient will be seen daily for medication monitoring as well as mental status examinations. The patient's medication was changed over the next couple of days from Risperdal to Zyprexa. The patient read in the printout that he was given that Risperdal might may cause development of breast tissue the patient reported that he want to take Risperdal because of that. We did start with Zyprexa which was gradually adjusted to 10 mg at bedtime and the patient tolerated that pretty well. He denied any major side effects with it. On he showed very slow and gradual improvement in his thought disorder. During his stay on the inpatient psychiatric unit the patient was polite and did not pose any major behavioral problems. There was no need for seclusions or restraints. Patient was not aggressive and did not engage in any kind of assaultive behavior. Throughout his stay in the hospital the patient denied thoughts of suicide. He denied violent thoughts or thoughts of homicide. During his stay in the hospital I was not clear whether the patient was experiencing any hallucinations or not. There was 1 or 2 instances where he reported that he was "venting to the event" (i.e. talking to the vent in his room), and another occasion where was not clear whether he was talking about actual hallucinations or just describing his own thoughts. 01/16/2018: Bob continues to have a thought disorder. However, he shows relative improvement. He denied hallucinations, has odd beliefs/odd use of language and (may be) some paranoia -nothing very specific Making less global statements and excessive abstractions, He was alert & oriented to time, place, and person. He reported that he is planning to do GH-IOP tolerating Zyprexa/denies any significant side effects. Bob says that his mood is not that depressed, denies feeling hopeless about life. He denied wishing and denied thinking of suicide. Chaim denies thinking of violence or homicide. Assessment Update: Bob Rivera (: 1990) is a 27-year-old single white male who was admitted to the inpatient psychiatric unit at [facility] on 01/01/2018 because of disorganized thoughts and behaviors. Patient's thought disorder is improving/slightly less disorganized. Diagnosis (last update on 01/13/2018): Unspecified Psychotic Disorder (the differential includes Schizophreniform Disorder, Substance-Induced Psychotic Disorder, or Schizophrenia spectrum) Treatment Plan Update: D/C Home to F/U with GH-IOP Discharge HBIPS - Tobacco Use Treatment Offered Post DC Medications Offered: Not Applicable Post DC Tobacco Treatment Plan: Not Applicable - EtOH/Drug Use D/O Treatment Offered Post DC Medications Offered: NA-No EtOH/Drug Use D/O Post DC EtOH/SubAbuse TX Plan: NA-No EtOH/Drug Use D/O Metabolic Screening - Screen if on a Neuroleptic Medication - Metabolic screening should include: - Blood Pressure, BMI, Glucose or Hgb A1c, & a - Lipid profile from within the past 365 days. Metabolic Screening Patient on a neuroleptic(s) . Enter below results for Hemoglobin A1C, and lipid panel if obtained during the last 365 days. BMI: 34.200 Blood Pressure: 123/65 Laboratory Results From [facility] (If applicable): Lab Cholesterol 145 MG/DL 01/02/18 0650 Cholesterol/HDL Ratio 4 % 01/02/18 0650 HDL Cholesterol 41 mg/dL 01/02/18 0650 Hemoglobin A1c 4.9 % 01/02/18 0650 LDL Cholesterol, Calc 92 mg/dL 01/02/18 0650 Triglycerides 64 mg/dL 01/02/18 0650 Discharge Instructions General Discharge Information Multiple Neuroleptics: Not Applicable Discharge Diet Regular Discharge Activity Normal DC Disposition: Home Referrals Ordered Referrals Provider Referral 01/16/18 For Groups: [[facility]] [address][phone] Intake 01/16/18 at 1:15pm Prescriptions Stop taking the following medications: Ibuprofen (Motrin) 800 MG TAB ORAL Q8H as needed for PAIN/SWELLING Qty = 20 HYDROCODONE/ACETAMINOPHEN (Vicodin 5-300 MG Tablet) 1 TAB TAB ORAL Q6H as needed for PAIN Qty = 12 Start taking the following new medications: Olanzapine (Olanzapine) 10 MG TABLET 10 Milligram ORAL AT BEDTIME Qty = 15 No Refills Comments: Last Taken:01/16/18 Time:9:30PM LORazepam (Ativan) 1 MG TAB 1 Tablet ORAL EVERY 8 HOURS as needed for as needed for anxiety/insomnia Qty = 45 No Refills Comments: Last Taken:01/13/18 Time:8PM Studies Pending at Discharge None Copies To: Amber Kline LCSW
--- NOTE | 2018-01-16 16:02 | SOCIAL WORKER PROG NOTE PSYCH ---
Social Work Progress Note Progress Note SW met with pt to prepare for discharge. Pt requested assistance in completing survey regarding symptoms and discharge instructions. Pt was thoughtful and offered good insight regarding his anxiety and best ways to manage symptoms. 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 Pt denies SI/HI. Pt will be discharged to 1:15pm IOP intake. SW reviewed plan with his mother. She is supportive of plan and will pick him up from [facility] following intake. Pt provided crisis contact information if needed. Faxed Referral(s) Referred To: [facility] Transition of Care Documents sent: Health Summary Faxed to: [facility] Fax #: [phone] Faxed by: Kavin Perdue Date faxed: 01/16/18 Time Faxed: [phone]
== END 2018-01-16 13:14 | DRG 885 ==
LOC: ERH 21:55 → ERHI 01-01 13:53 → CP SOUTH 01-01 13:53 → ENTRNSPT 01-01 14:07 → EDTRNSPTTYP 01-01 14:15 → EDTRNSPT 01-01 14:15 → CP SOUTH 01-01 14:20 → CMPTRNSPT 01-01 14:24 → CP SOUTH 01-01 14:24
PROVIDERS: Emergency Medicine; Student in an Organized Health Care Education/Training Program
DX: F29 Unspecified psychosis not due to a substance or known physiological condition (principal)
CPT/HCPCS: 36415; 80307; 81001; 81003; 84600; 93005; 93010; G0480

== ENCOUNTER 2018-02-09 10:33 | Inpatient (IN) | payer OTHER ==
[~2018-02-09] VITALS: Ht 188 cm; Wt 126.6 kg
[~2018-02-09 10:33] MED LIST changes: +ATIVAN1 M1 PO; +OLANZAPINE10 M1 PO
--- NOTE | 2018-02-09 10:45 | ED PSYCHIATRIC COMPLAINT ---
See Addendum History of Present Illness General Chief Complaint: Psychiatric Related Complaint Stated Complaint: BIBA +SI Source: patient Exam Limitations: no limitations Vital Signs & Intake/Output Vital Signs & Intake/Output Vital Signs Date Time Temp Pulse Resp B/P B/P Pulse O2 O2 Flow FiO2 Mean Ox Delivery Rate 02/09 1056 99 Room Air 02/09 1048 98.0 84 18 156/81 99 Room Air Allergies Coded Allergies: Pertussis Vaccines (SWELLING 01/01/18) Reconcile Medications LORazepam (Ativan) 1 MG TAB 1 TAB PO Q8 PRN as needed for anxiety/insomnia Olanzapine 10 MG TABLET 10 MG PO AT BEDTIME thought disorder Triage Nurses Notes Reviewed? yes Onset: Abrupt Duration: day(s): Timing: recent history HPI: 02/09/18 11 am 27-year-old male with a past medical history of depression presents to the emergency department for suicidal ideation. He says he feels like he was wasting his life and having thoughts of taking all his pills. He denies any significant past medical history. Past History Travel History Traveled to [place] past 21 day No Medical History Any Pertinent Medical History? 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 No Review of Systems Review of Systems Constitutional: Denies: fever. EENTM: Reports: no symptoms. Respiratory: Denies: short of breath. Cardiovascular: Denies: chest pain. GI: Denies: abdominal pain. Genitourinary: Reports: no symptoms. Musculoskeletal: Reports: no symptoms. Skin: Reports: no symptoms. Neurological/Psychological: Reports: no symptoms. Hematologic/Endocrine: Reports: no symptoms. Immunologic/Allergic: Reports: no symptoms. Physical Exam Physical Exam General Appearance: well developed/nourished, alert, awake, anxious Head: atraumatic, normal appearance Eyes: Bilateral: normal appearance, PERRL, EOMI. Ears, Nose, Throat: normal pharynx, normal ENT inspection Neck: normal inspection, supple, full range of motion Respiratory: normal breath sounds, chest non-tender, no respiratory distress Cardiovascular: regular rate/rhythm Gastrointestinal: soft, non-tender Extremities: normal range of motion Neurological/Psychiatric: no motor/sensory deficits, awake, agitated, alert Appearance/Memory/Insight: appropriate appearance Behavoir/Eye Contact/Speech: cooperative Thoughts/Hallucinations: no apparent hallucination Skin: intact, warm/dry SAD PERSONS SAD PERSONS Response Value Male Sex? yes 1 Depression/Hopelessness? yes 2 Previous Attempts/Psych Care yes 1 Excessive Ethanol/Drug Use? yes 1 Rational Thinking Loss? yes 2 Single//? yes 1 Social Support? has no support 1 Stated Future Intent? yes 2 Total 11 SAD PERSONS Done? yes Progress Differential Diagnosis: drug intoxication, drug overdose, depression Plan of Care: 02/09/18 The patient is pending crisis evaluation. Initial ED EKG: none Departure Departure Disposition: HOME OR SELF CARE Condition: Stable Clinical Impression Primary Impression: Depression Referrals: Refugio SWANSON,Saul Aranda (PCP/Family) Departure Forms: Customer Survey General Discharge Information
[2018-02-09] MEDS ORDERED: LITHIUM CARBON300 M6 PO (11:25)
[2018-02-09 13:37] LABS: ABSOLUTE BASOPHIL COUNT 0 /CUMM (0.0-0.2); ABSOLUTE EOSINOPHIL COUNT 0.1 /CUMM (0.0-0.7); ABSOLUTE GRANULOCYTE CT 5.7 /CUMM (1.4-6.5); ABSOLUTE LYMPH COUNT 1.4 /CUMM (1.2-3.4); ABSOLUTE MONOCYTE COUNT 0.5 /CUMM (0.10-0.60); BASOPHIL % 0.4 % (0.0-2.0); EOSINOPHIL % 0.8 % (0-5); GRANULOCYTE % 74.2 % (42.2-75.2); HEMATOCRIT 47.5 % (42-52); MEAN CORPUSCULAR HGB 28.9 PG (27.0-31.0); MEAN CORPUSCULAR HGB CONC 33.7 G/DL (33.0-37.0); MEAN CORPUSCULAR VOLUME 85.8 FL (80.0-94.0); MEAN PLATELET VOLUME 7.9 FL (7.4-10.4); PLATELET COUNT 347 /CUMM (130-400); RBC DISTRIBUTION WIDTH 12.8 % (11.5-14.5); RED BLOOD CELL CT 5.53 /CUMM (4.70-6.10); WHITE BLOOD CELL COUNT 7.7 /CUMM (4.8-10.8)
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
[2018-02-09 18:32] LABS: LITHIUM < 0.2 mmol/L (0.6-1.2)
--- NOTE | 2018-02-09 18:43 | ED PSY CRISIS COLLATERAL NOTE ---
Collateral Note Collateral Note Family/Inform/Aureliano Contacts: spoke with pt.'s mother Carolyn. She reported since he's gotten out of CPS, it has been up and down, more down than up. She reported at one point she took all the meds he was prescribed because she was concerned he was going to take them all. He was upset and stated "I'm not a child" she gave them back but was checking them 3 times a day to make sure he was taking them as prescribed. She reported he has been so low and so down and depressed.
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
[2018-02-09 20:39] VITALS: BP 137/70
[2018-02-10 08:22] VITALS: BP 121/62
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
--- NOTE | 2018-02-10 10:50 | SOCIAL WORKER PROG NOTE PSYCH ---
Social Work Progress Note Progress Note I Ed Bland [place] [place] Substation Design Draftsperson[place] along with Doctor Darien met with Bob this morning. He appeared well groomed. The patient was cooperative and engaged in the session. Bob shared that he felt he was benefiting more from seeing his individual therapist ( Dhaval Sneed) compared to attending IOP. Patient reports that IOP is ok but sometimes feels that sharing his feeling with others can give others the impression that he will act on them even though he states he has no intentions to act on them. Bob expressed having awareness that he can be too hard on himself sometimes. He describes having negative thoughts about withdrawing from school. The environment was discussed and the patient finds that having a lot of down time in the house can be challenging for him. Bob intend to find something to do, whether it is volunteering or going to the gym more often, to keep him busy and out of the house. He believes that his negative thoughts will be less frequent if he is busy. His suicidal ideation was present for the last few days. Patient thinks that others people and electronics are observing him. Patient shared that he was recently put on lithium. Bob mentioned that he was unhappy with the diagnosis he has and does not want to self diagnosis but believes he has features of OCD and high functioning autism. He feels a lack of social support and wants to be another person's best friend. The idea of a family meeting with Mom was discussed and I will reach out to her to see if she is available for an in person or phone conference. Patient reports he wants to go home. This health underwriter spoke with patient's mother and there is a family meeting scheduled for TuesdayFebruary 13 at 12:00pm to 12:30 pm
--- NOTE | 2018-02-10 12:40 | PN- Att Addend ---
Attending Addendum Attending Brief Note Patient seen and examined, feels ok. Better then before. did c/o mild back pain in midback. Vital Signs Date Time Temp Pulse Resp B/P B/P Pulse O2 O2 Flow FiO2 Mean Ox Delivery Rate 02/10 0822 96.8 78 121/62 02/09 2039 97.7 64 137/70 02/09 2009 97.7 75 20 120/62 93 Room Air 02/09 1825 87 18 138/86 99 Room Air 02/09 1543 98.3 100 20 131/75 91 Room Air on exam; aox3, nad. cv; s1,s2, rrr resp; clear abd; soft, nt, bs+ ext; no edema Laboratory Tests 02/09 1320 Chemistry Sodium (137 - 145 mmol/L) 140 Potassium (3.5 - 5.1 mmol/L) 4.5 Chloride (98 - 107 mmol/L) 106 Carbon Dioxide (22 - 30 mmol/L) 24 Anion Gap (5 - 16) 10 BUN (9 - 20 mg/dL) 13 Creatinine (0.7 - 1.2 mg/dL) 0.7 Estimated GFR (>60 ml/min) > 60 BUN/Creatinine Ratio (7 - 25 %) 18.6 Glucose (65 - 99 mg/dL) 85 Calcium (8.4 - 10.2 mg/dL) 9.6 Total Bilirubin (0.2 - 1.3 mg/dL) 0.6 AST (17 - 59 U/L) 30 ALT (21 - 72 U/L) 39 Alkaline Phosphatase (< 127 U/L) 75 Total Protein (6.3 - 8.2 g/dL) 7.5 Albumin (3.5 - 5.0 g/dL) 4.5 Globulin (1.9 - 4.2 gm/dL) 3.0 Albumin/Globulin Ratio (1.1 - 2.2 %) 1.5 Hematology CBC w Diff NO MAN DIFF REQ WBC (4.8 - 10.8 /CUMM) 7.7 RBC (4.70 - 6.10 /CUMM) 5.53 Hgb (14.0 - 18.0 G/DL) 16.0 Hct (42 - 52 %) 47.5 MCV (80.0 - 94.0 FL) 85.8 MCH (27.0 - 31.0 PG) 28.9 MCHC (33.0 - 37.0 G/DL) 33.7 RDW (11.5 - 14.5 %) 12.8 Plt Count (130 - 400 /CUMM) 347 MPV (7.4 - 10.4 FL) 7.9 Gran % (42.2 - 75.2 %) 74.2 Lymphocytes % (20.5 - 51.1 %) 17.8 L Monocytes % (1.7 - 9.3 %) 6.8 Eosinophils % (0 - 5 %) 0.8 Basophils % (0.0 - 2.0 %) 0.4 Absolute Granulocytes (1.4 - 6.5 /CUMM) 5.7 Absolute Lymphocytes (1.2 - 3.4 /CUMM) 1.4 Absolute Monocytes (0.10 - 0.60 /CUMM) 0.5 Absolute Eosinophils (0.0 - 0.7 /CUMM) 0.1 Absolute Basophils (0.0 - 0.2 /CUMM) 0 Toxicology [place] (0.6 - 1.2 mmol/L) < 0.2 L Serum Alcohol (<10 MG/DL) < 10.0 A/P; 27 y/o M with pmh sig for anxiety, depression, previous SI, asthma is admitted to [facility] with SI and worsening depression. Patient claims that his asthma is well controlled and does not require the inhaler. His vital signs and lab work look good. I will defer his psychiatric management up to the psychiatrist.
[2018-02-10 19:54] VITALS: BP 135/68
[2018-02-11 07:49] VITALS: BP 111/64
--- NOTE | 2018-02-11 16:53 | CP SOUTH PROGRESS NOTE PSYCH ---
Psych (Inpt) Progress Note Progress Note Progress Note: 27-year-old single white male who was referred to the emergency room by the intensive outpatient program because of thoughts about suicide. Pt was discharged from [facility] 5 weeks. He was admitted for possible first episode of schizophrenia spectrum disorder. The patient is in disagreement with the diagnosis he does acknowledge that he may have high functioning autism/ Asperger's as well as obsessive-compulsive spectrum disorder. His current presentation is for thoughts of suicide but there is significant paranoid delusions. Today, Pt is "neural". He denied any sadness or suicidality. He denied any issue with sleep or appetite. He denied any hallucination. He focused on his diagnosis and childhood. He did not have friends specially girls. He felt "odd" and "unbalanced". Diagnostic impression: Major Depressive Disorder Generalized Anxiety Disorder (a combination of illness anxiety, agoraphobia, social phobia, and generalized anxiety symptoms. Provisional diagnosis of Autism Spectrum Disorder Mild neuro-cognitive disorder Mental status: He is AO3. He was appropriately dressed. Avoided eye contact. He was slow. His speech was soft. His thoughts were concrete but focused on his memory and observation ability. He denied any hallucination or paranoia. He denied any suicidality or homicidality. Insight and Judgement is poor. Current Medications Sig/Lion Start time Last Medication Dose Route Stop Time Status Admin Acetaminophen 650 MG Q4P PRN 02/10 1315 AC PO Al Hydroxide/Mg 30 ML Q4-6 PRN PRN 02/10 1315 AC Hydroxide PO Benztropine Mesylate 1 MG Q6P PRN 02/10 1315 AC PO Benztropine Mesylate 1 MG Q6P PRN 02/10 1315 AC IM Haloperidol 5 MG Q6P PRN 02/10 1315 AC PO Haloperidol 5 MG Q6P PRN 02/10 1315 AC IM [place] Carbonate 300 MG BID 02/09 2100 AC 02/11 PO 0850 Lorazepam 2 MG Q6P PRN 02/10 1315 AC PO Lorazepam 2 MG Q6P PRN 02/10 1315 AC IM Lorazepam 1 MG Q8P PRN 02/09 1815 AC PO Magnesium Hydroxide 30 ML AT BEDTIME NEED.. 02/10 1315 AC PO Olanzapine 20 MG AT BEDTIME 02/10 2100 AC 02/10 PO 2131 Vital Signs Date Time Temp Pulse Resp B/P B/P Pulse O2 O2 Flow FiO2 Mean Ox Delivery Rate 02/11 0749 96.2 70 111/64 02/10 1954 97.8 85 135/68 Treatment plan update: - Continue [place] 300mg BID (Level 0.2 on 02/09). Scheduled for another Level on Tuesday. - Zyprexa 20mg daily
[2018-02-11 20:20] VITALS: BP 130/79
[2018-02-12 08:29] VITALS: BP 114/57
--- NOTE | 2018-02-12 13:26 | CP SOUTH PROGRESS NOTE PSYCH ---
Psych (Inpt) Progress Note Progress Note 27-year-old single white male who was referred to the emergency room by the intensive outpatient program because of thoughts about suicide. Pt was discharged from [facility] 5 weeks. He was admitted for possible first episode of schizophrenia spectrum disorder. The patient is in disagreement with the diagnosis he does acknowledge that he may have high functioning autism/ Asperger's as well as obsessive-compulsive spectrum disorder. His current presentation is for thoughts of suicide but there is significant paranoid delusions. Today, Pt feels "good". He expressed discomfort toward one of the pt who was talking about being a gang member. Pt denied any worries. He denied any suicidality. She noted having allergy. We discussed Claritin. He agreed. He denied any medication side effect. Current Medications Sig/Lion Start time Last Medication Dose Route Stop Time Status Admin Acetaminophen 650 MG Q4P PRN 02/10 1315 AC PO Al Hydroxide/Mg 30 ML Q4-6 PRN PRN 02/10 1315 AC Hydroxide PO Benztropine Mesylate 1 MG Q6P PRN 02/10 1315 AC PO Benztropine Mesylate 1 MG Q6P PRN 02/10 1315 AC IM Haloperidol 5 MG Q6P PRN 02/10 1315 AC PO Haloperidol 5 MG Q6P PRN 02/10 1315 AC IM [place] Carbonate 300 MG BID 02/09 2100 AC 02/12 PO 0941 Lorazepam 2 MG Q6P PRN 02/10 1315 AC PO Lorazepam 2 MG Q6P PRN 02/10 1315 AC IM Lorazepam 1 MG Q8P PRN 02/09 1815 AC PO Magnesium Hydroxide 30 ML AT BEDTIME NEED.. 02/10 1315 AC PO Olanzapine 20 MG AT BEDTIME 02/10 2100 AC 02/11 PO 2122 Vital Signs Date Time Temp Pulse Resp B/P B/P Pulse O2 O2 Flow FiO2 Mean Ox Delivery Rate 02/12 829 96.9 67 114/57 02/12 2020 98.5 68 130/79 Mental status: He is AO3. He was appropriately dressed. Avoided eye contact. He was slow. His speech was soft. His thoughts were concrete. He denied any hallucination or paranoia. He denied any suicidality or homicidality. Insight and Judgement is poor. Diagnostic impression: Major Depressive Disorder Generalized Anxiety Disorder (a combination of illness anxiety, agoraphobia, social phobia, and generalized anxiety symptoms. Provisional diagnosis of Autism Spectrum Disorder Mild neuro-cognitive disorder Assessment: Pt feels better today. Will continue medication. He asked for an antiallergy. Will give. Treatment plan update: - Continue [place] 300mg BID (Level 0.2 on 02/09). Scheduled for another Level on Tuesday. - Continue Zyprexa 20mg daily
[2018-02-12 19:53] VITALS: BP 141/80
--- NOTE | 2018-02-13 08:48 | CP SOUTH PROGRESS NOTE PSYCH ---
Psych (Inpt) Progress Note Progress Note I reviewed Dr. Villareal's notes (covering for the weekend of 02/11 and 2017). The patient's progress, treatment plan, and aftercare plans were discussed in the treatment team meeting this morning. Team members included: LCSWs, RNs, OTR/ L, Activities Therapist, and Psychiatrist. Laboratory Tests 02/13 0640 Toxicology [place] (0.6 - 1.2 mmol/L) 0.4 L Vital Signs Date Time Temp Pulse Resp B/P B/P Pulse O2 O2 Flow FiO2 02/13 1126 96.7 65 135/71 02/12 1953 97.7 81 141/80 Mental Status Examination Patient was calm and cooperative, still has multiple paranoid delusions (e.g. being watched, followed, surveilled, talked about) He showed normal psychomotor activity, did not show any abnormal or bizarre behaviors. He was talkative but not pressured, Constricted range of affect He acknowledged depression and loneliness, reported that he has been struggling with thoughts of suicide are on and off for weeks (still does to a lesser degree , no intent or plan) Denied violent thoughts or thoughts of homicide. He denied hallucinations. The patient is circumstantial, tangential, over detailed and obsessive/ perseverative Partial insight Reasonable judgment in hypothetical situations Alert and oriented to time, place, and person. Patient did not seem to have any difficulties with information processing. No short-term memory impairment Assessment: 27-year-old single white male who was referred to the emergency room by the intensive outpatient program because of thoughts about suicide. The patient is known to the inpatient psychiatric unit from a previous admission about 5 weeks earlier. The patient to during that admission was suspected of having a first diagnosis of schizophrenia spectrum disorder. The patient is in disagreement with the diagnosis he does acknowledge that he may have high functioning autism/ Asperger's as well as obsessive-compulsive spectrum disorder (I believe he is accurate on both these accounts), his current presentation is for thoughts of suicide but there is significant paranoid delusions. 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
[2018-02-13 11:26] VITALS: BP 135/71
--- NOTE | 2018-02-13 13:52 | SOCIAL WORKER PROG NOTE PSYCH ---
Social Work Progress Note Progress Note Bob's Mother arrived for a 12pm family meeting. Dr. Ledezma was also present at this meeting. Bob shared that he is working on his social skills here on the unit. Mom stated that he needs to learn how to do that outside of the hospital. Mom has been worried alot about him, stating she is constantly checking on him to see if he is okay. She was worried about his statement about overdosing on his medication. She plans to lock up his medication and distribute that to him. Bob seemed fine with this plan. He doesn't report any intention of hurting himself at this time. Mom talked about the importance of him structuring his time. She has been encouraging him to volunteer since he is not working right now. She reports Bob spends too much time playing video games and not doing anything during the day. Bob is open to volunteering. He does continue to have paranoia about others in the community. Shared some examples of times he felt people were talking about him. Talked about how he just has to brush that off/ reality check and continue to move forward with his day. He is starting to realize that the medication and therapy won't fix everything and he has to do some of the work. He feels safe to return home tomorrow and Mom is in agreement. He will return to [facility] here at [place].
[2018-02-13 19:58] VITALS: BP 154/71
--- NOTE | 2018-02-13 19:58 | SOCIAL WORKER PROG NOTE PSYCH ---
Social Work Progress Note Progress Note DAVID JeannieReal GARCIA [id number] 1990 DAVID GARCIA [id number] Pended Authorization # Client Authorization # Type of Request [id number] CONCURRENT Date of Admission/ Start of Services Requested From Submission Date 02/09/2018 02/13/2018 02/13/2018
--- NOTE | 2018-02-14 07:54 | CP SOUTH PROGRESS NOTE PSYCH ---
Psych (Inpt) Progress Note Progress Note Vital Signs Date Time Temp Pulse B/P B/P Pulse O2 O2 Flow FiO2 02/14 0805 96.3 70 106/64 02/13 1958 98.2 74 154/71 02/13 1126 96.7 65 135/71 Mental Status Examination Chaim looked slightly tired/sleepy (interviewed at 08:00 a.m.) He was calm and cooperative, His paranoid delusions (e.g. being watched, followed, surveilled, talked about) have desclined in intensity and frequency (but still there) He showed normal psychomotor activity, did not show any abnormal or bizarre behaviors. This morning, he was neither talkative nor pressured, He exhibited a constricted range of affect less depressed thoughts of suicide are less frequent and less intense and no intent or plan Chaim denied violent thoughts or thoughts of homicide. He denied hallucinations. The patient continues to have some circumstantial, tangential, and over detailed thoughts process Alert and oriented to time, place, and person. Patient did not seem to have any difficulties with information processing. Treatment Plan: D/C to IOP intake then home Pt. will need [place] monitoring in another 5-6 days intensive outpatient program because of thoughts about suicide. The patient is known to the inpatient psychiatric unit from a previous admission about 5 weeks earlier. The patient to during that admission was suspected of having a first diagnosis of schizophrenia spectrum disorder. The patient is in disagreement with the diagnosis he does acknowledge that he may have high functioning autism/ Asperger's as well as obsessive-compulsive spectrum disorder (I believe he is accurate on both these accounts), his current presentation is for thoughts of suicide but there is significant paranoid delusions. 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
[2018-02-14] MEDS ORDERED: OLANZAPINE10 M1 PO (08:04)
[2018-02-14] MEDS ORDERED: LITHIUM CARBON450 M1 PO (08:04)
[2018-02-14 08:05] VITALS: BP 106/64
--- NOTE | 2018-02-14 08:07 | Patient Discharge Instructions ---
Psych Discharge Inst General Discharge Information Reason for Admission: Thoughts of suicide Psy Discharge Primary Diag+ Schizophrenia spectrum Summary Tests/Major Procedures Laboratory Results From [facility] (If applicable): Lab Cholesterol 145 MG/DL 01/02/18 0650 Cholesterol/HDL Ratio 4 % 01/02/18 0650 HDL Cholesterol 41 mg/dL 01/02/18 0650 Hemoglobin A1c 4.9 % 01/02/18 0650 LDL Cholesterol, Calc 92 mg/dL 01/02/18 0650 Triglycerides 64 mg/dL 01/02/18 0650 Studies Pending at DC: None, needs [place] monitoring in 5-6 days Patient Instructions Contact Information Your Psychiatrist on [facility] was Darien SWANSON,Arie * If you are experiencing an emergency related to this hospitalization, please call [phone] to contact the treating psychiatrist or the psychiatrist-on- call. * To Request a copy of your medical records, please contact the Medical Records Department at [phone]. * To request results of studies pending at the time of discharge, please call [phone]. * Continue your Medications until directed to stop by your Healthcare provider. General Medication Information Please continue to take your new medications and your continued home medications , unless otherwise indicated on your discharge medication list, or unless directed by your MD or INSULATION SPRAYER to stop them. Special Instructions Diet Regular Activity Normal - Tobacco Use Treatment Offered Post DC Medications Offered: Not Applicable Post DC Tobacco Treatment Plan: Not Applicable - EtOH/Drug Use D/O Treatment Offered Post DC Medications Offered: NA-No EtOH/Drug Use D/O Post DC EtOH/SubAbuse [place] Plan: NA-No EtOH/Drug Use D/O Metabolic Screening Patient on a neuroleptic(s) . Enter below results for Hemoglobin A1C, and lipid panel if obtained during the last 365 days. BMI: Blood Pressure: 106/64 Laboratory Results From [facility] (If applicable): Laboratory Results From [facility] (If applicable): Lab Cholesterol 145 MG/DL 01/02/18 0650 Cholesterol/HDL Ratio 4 % 01/02/18 0650 HDL Cholesterol 41 mg/dL 01/02/18 0650 Hemoglobin A1c 4.9 % 01/02/18 0650 LDL Cholesterol, Calc 92 mg/dL 01/02/18 0650 Triglycerides 64 mg/dL 01/02/18 0650 Advance Directives Does the Patient have Medical Advance Directives No/Refused further info Does Pt have Psychiatric Advance Directives? No/Refused further info Does Patient have a Designated Surrogate Decision Maker: No Information About Psychiatric Advance Directives Provided? Refused Discharge Plan Post Hospital Treatment Plan: GH-IOP
--- NOTE | 2018-02-14 08:15 | DISCHARGE SUMMARY REPORT-PSYCH ---
Visit Information Visit Dates/Diagnosis' Admission Date: 02/09/18 Discharge Date: 02/14/18 Reason for Admission: Thoughts of suicide Psy Discharge Primary Diag: Schizophrenia spectrum Hospital Course Significant Lab Findings: Lab [place] 0.4 mmol/L L 02/13/18 0640 Course Complications: Patient did not have any complications while he was on the inpatient psychiatric unit Consultations: Source of Information: patient, old records Exam Limitations: no limitations History of Present Illness: 27 year old unmarried male who was transported to the E D after having made a mess at his home, where he lives with his mother and his step-father, and then drank anti-freeze. Mom stresses that patient has been espousing paranoid ideation, and indicating that people are watching him and are after him/them. Patient is suspicious of everything per mom. Mother feels that he may be taking drugs, but patient denies this, and tox screen is negative. Patient is alert and oriented x 3. Patient mood has changed throughout the morning, and he has grown more distrustful. Patient needs admission due to danger to self, and poor judgement. Other ROS negative. No fever, chills, headache, abdominal pain, chest pain. Allergies/Medications Allergies: Coded Allergies: Pertussis Vaccines (SWELLING 01/01/18) Home Med list No Known Home Medications Past History Travel History Traveled to [place] past 21 day No Medical History Neurological: NONE EENT: NONE Cardiovascular: NONE Respiratory: asthma Gastrointestinal: NONE Psychiatric: anxiety, depression Isolation History: Standard Surgical History Surgical History: non-contributory Past Family/Social History Psychosocial History ETOH Use: occasional use Illicit Drug Use: marijuana, MUSHROOMS Review of Systems Review of Systems Constitutional: Denies: no symptoms. EENTM: Denies: no symptoms, see HPI. Cardiovascular: Denies: no symptoms, see HPI. Respiratory: Denies: no symptoms, see HPI. GI: Denies: no symptoms, see HPI. Genitourinary: Denies: no symptoms, see HPI. Musculoskeletal: Denies: no symptoms, see HPI. Skin: Denies: no symptoms, see HPI. Neurological/Psychological: Reports: depressed. All Other Systems: Reviewed and Negative Exam & Diagnostic Data Last 24 Hrs of Vital Signs/I&O Vital Signs Date Time Temp Pulse Resp B/P B/P Pulse O2 O2 Flow FiO2 Mean Ox Delivery Rate 01/01 1459 99.5 69 152/80 08/05 1413 98.1 52 18 136/66 98 Room Air 01/01 1142 98.3 72 18 148/75 97 Room Air 01/01 1003 98.0 88 18 128/74 99 Room Air 01/01 0726 97.1 92 18 135/82 98 Room Air 12/31 2333 98.3 71 18 161/73 96 Room Air 12/31 2331 97 Room Air 12/31 2200 98.5 59 18 158/75 96 Room Air Intake & Output 01/01 1600 01/01 0800 08 0000 Intake Total Output Total 100 Balance -100 Output, Urine 100 Patient 124.284 kg 129.274 kg Weight Weight Reported by Patient Measurement Method Physical Exam General Appearance Alert, Oriented X3, Cooperative, No Acute Distress Skin No Rashes HEENT Atraumatic, PERRLA Neck Supple, No JVD Cardiovascular Regular Rate Lungs Normal Air Movement Abdomen Soft, No Tenderness Neurological Cranial Nerves II through XII: intact Last 24 Hrs of Labs/[place]: Laboratory Tests 12/31/176: Ethylene Glycol NOT DETECTED, Methyl Alcohol, Quant NOT DETECTED, Isopropanol NOT DETECTED 12/31/17 2250: Urine Opiates Screen < 100, Methadone Screen < 40, Barbiturate Screen < 60, Ur Phencyclidine Scrn < 6.00, Amphetamines Screen < 100, U Benzodiazepines Scrn < 85, Urine Cocaine Screen < 50, Urine Cannabis Screen 7.20, Urine Color YEL, Urine Clarity HAZY H, Urine pH 6.0, Ur Specific Halma >= 1.030, Urine Protein NEG, Urine Ketones NEG, Urine Nitrite NEG, Urine Bilirubin NEG, Urine Urobilinogen 0.2, Ur Leukocyte Esterase NEG, Ur Microscopic SEDIMENT EXAMINED, Urine RBC 1-3, Urine WBC RARE, Ur Epithelial Cells RARE, Urine Bacteria FEW H, Urine Hemoglobin SMALL H, Urine Glucose NEG 12/31/17 2230: Anion Gap 8, Estimated GFR > 60, BUN/Creatinine Ratio 14.4, Glucose 94, Lactic Acid 0.8, Calcium 9.3, Total Bilirubin 0.6, AST 44, ALT 44, Alkaline Phosphatase 75, Total Protein 7.3, Albumin 4.3, Globulin 3.0, Albumin/Globulin Ratio 1.4, CBC w Diff NO MAN DIFF REQ, RBC 5.02, MCV 87.1, MCH 29.3, MCHC 33.7, RDW 12.8, MPV 8.9, Gran % 76.7 H, Lymphocytes % 14.1 L, Monocytes % 8.2, Eosinophils % 0.2, Basophils % 0.8, Absolute Granulocytes 9.4 H, Absolute Lymphocytes 1.7, Absolute Monocytes 1.0 H, Absolute Eosinophils 0, Absolute Basophils 0.1, Salicylates < 1.0, Acetaminophen < 10.0 L, Serum Alcohol < 10.0, Acetone Level NEGATIVE Assessment/Plan As Ranked By This Provider Problem List: 1. Depression, major, recurrent, severe with psychosis Miscellaneous Miscellaneous Documentation Attending Case Discussed With: Darien SWANSON,Arie Primary Care Physician: Saul Huff MD Patient sees these Specialists none Level of Patient Care: SHEBA Segura Attending MD Review Statement Attending Statement Attending MD Statement: examined this patient, discuss w/resident/PA/ORACLE DISTRIBUTION CONSULTANT, agreed w/resident/PA/ORACLE DISTRIBUTION CONSULTANT, discussed with family, reviewed EMR data (avail), discussed with nursing, discussed with case mgmt, reviewed images Attending Assessment/Plan: 27 o/m with no significant past medical history is admitted to [facility] for depression major episode with use of marijuana. Pyshciatry is following patient. DICTATED BY: Eloisa Boggs MD DATE/TIME DICTATED:01/01/181629 TEAM COORDINATOR:CRISTINO DATE/TIME TRANSCRIBED:01/01/181629 REPORT NUMBER:[id number] CONFIDENTIAL, DO NOT COPY WITHOUT APPROPRIATE AUTHORIZATION. <Electronically signed by Eloisa Boggs MD> 01/01/18 1651 Allergies: Coded Allergies: Pertussis Vaccines (SWELLING 01/01/18) Hospital Course/TX Response: 02/10/2018: Dr. Ledezma's Initial impression 27-year-old single white male who was referred to the emergency room by the intensive outpatient program because of thoughts about suicide. The patient is known to the inpatient psychiatric unit from a previous admission about 5 weeks earlier. The patient to during that admission was suspected of having a first diagnosis of schizophrenia spectrum disorder. The patient is in disagreement with the diagnosis he does acknowledge that he may have high functioning autism/ Asperger's as well as obsessive-compulsive spectrum disorder (I believe he is accurate on both these accounts), his current presentation is for thoughts of suicide but there is significant paranoid delusions. 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 Villareal (covering weekend) Treatment plan update: - Continue [place] 300mg BID (Level 0.2 on 02/09). Scheduled for another Level on Tuesday. - Zyprexa 20mg daily 02/12/2018: Dr. Villareal (covering ) - Continue [place] 300mg BID (Level 0.2 on 02/09). Scheduled for another Level on Tuesday. - Continue Zyprexa 20mg daily 02/13/2018: Family meeting Continue Zyprexa 20 mg at bedtime Increase lithium from 300 mg twice daily to 450 mg BID (today's level was 0.4 mmol/L) Continue Ativan 1 mg daily slated for discharge tomorrow 02/14/2018: Mental Status Examination Chaim looked slightly tired/sleepy (interviewed at 08:00 a.m.) He was calm and cooperative, His paranoid delusions (e.g. being watched, followed, surveilled, talked about) have desclined in intensity and frequency (but still there) He showed normal psychomotor activity, did not show any abnormal or bizarre behaviors. This morning, he was neither talkative nor pressured, He exhibited a constricted range of affect less depressed thoughts of suicide are less frequent and less intense and no intent or plan Chaim denied violent thoughts or thoughts of homicide. He denied hallucinations. The patient continues to have some circumstantial, tangential, and over detailed thoughts process Alert and oriented to time, place, and person. Patient did not seem to have any difficulties with information processing. Treatment Plan: D/C to IOP intake then home Pt. will need [place] monitoring in another 5-6 days Discharge HBIPS - Tobacco Use Treatment Offered Post DC Medications Offered: Not Applicable Post DC Tobacco Treatment Plan: Not Applicable - EtOH/Drug Use D/O Treatment Offered Post DC Medications Offered: NA-No EtOH/Drug Use D/O Post DC EtOH/SubAbuse [place] Plan: NA-No EtOH/Drug Use D/O Metabolic Screening - Screen if on a Neuroleptic Medication - Metabolic screening should include: - Blood Pressure, BMI, Glucose or Hgb A1c, & a - Lipid profile from within the past 365 days. Metabolic Screening Patient on a neuroleptic(s) . Enter below results for Hemoglobin A1C, and lipid panel if obtained during the last 365 days. BMI: 34.20 Blood Pressure: 106/64 Laboratory Results From [facility] (If applicable): Cholesterol 145 MG/DL 01/02/18 0650 Cholesterol/HDL Ratio 4 % 01/02/18 0650 HDL Cholesterol 41 mg/dL 01/02/18 0650 Hemoglobin A1c 4.9 % 01/02/18 0650 LDL Cholesterol, Calc 92 mg/dL 01/02/18 0650 Triglycerides 64 mg/dL 01/02/18 0650 Discharge Instructions General Discharge Information Multiple Neuroleptics: Not Applicable Discharge Diet Regular Discharge Activity Normal DC Disposition: Home Referrals Ordered Referrals INTENSIVE OUTPT PSYCHIATRY 02/14/18 [address] [place] [id number] [facility] Intensive Outpatient Psychiatry Intake 02/14/18 1:15pm [address] [place] [id number] Prescriptions Stop taking the following medications: Olanzapine (Olanzapine) 10 MG TABLET ORAL AT BEDTIME Qty = 15 [place] Carbonate ([place] Carbonate ER) 300 MG TABLET.ER ORAL TWICE DAILY Continue taking these medications: LORazepam (Ativan) 1 MG TAB 1 Tablet ORAL EVERY 8 HOURS as needed for as needed for anxiety/insomnia Qty = 45 Comments: Last Taken:01/13/18 Time:8PM Start taking the following new medications: Olanzapine (Olanzapine) 10 MG TABLET 20 Milligram ORAL AT BEDTIME Qty = 30 No Refills [place] Carbonate ([place] Carbonate ER) 450 MG TABLET.ER 450 Milligram ORAL TWICE DAILY Qty = 30 No Refills Studies Pending at Discharge None, needs [place] monitoring in 5-6 days Copies To: Kellen Nicholas APRN
--- NOTE | 2018-02-14 11:16 | SOCIAL WORKER PROG NOTE PSYCH ---
Social Work Progress Note Progress Note Bob was in group this morning. Presents as calm, cooperative, soft spoken. Gives alot of compliments to those around him. Encouraged him to start complimenting himself. He talked about how he is working on his self-esteem and he finds it difficult to compliment himself. This is something he is trying to work on. Talked about social relationships and the importance of not taking on others negativity, particularly in IOP. Bob reported that he feels alot better than he did and he realizes that he needs to work on things and that it's not just medication. Talked about pushing himself more in social situations. No SI today. Looking forward to returning to IOP. Intake is 1:15pm today.
--- NOTE | 2018-02-14 15:06 | SOCIAL WORKER PROG NOTE PSYCH ---
Social Work Progress Note Faxed Referral(s) Referred To: [facility] Transition of Care Documents sent: Health Summary Faxed to: [facility] Fax #: [phone] Faxed by: Corrine Lawrence Date faxed: 02/14/18 Time Faxed: [phone]
--- NOTE | 2018-02-15 08:54 | SOCIAL WORKER PROG NOTE PSYCH ---
Social Work Progress Note Progress Note Psychiatric Community Health Worker Note Determination Status: DISCHARGE COMPLETED Thank you. You have completed your discharge for this episode of care. Member Name Member ID Member Subscriber Name Subscriber ID DAVID GARCIA [id number] DAVIDBLU GARCIA [id number] Related Authorization # Related Client Authorization # Discharge # Discharge Date [id number] 02/14/2018 Level of Service Type of Service Level Of Care Type of Care IP - INPATIENT/HLOC P - MENTAL HEALTH I - INPATIENT CIP - INPATIENT HOSPITAL - INPATIENT HOSPITAL Provider Name & Address Provider ID Provider Alternate ID MARJAN ZOLTAN [id number] [address] [place] [phone]
== END 2018-02-14 13:27 | DRG 751 ==
LOC: ERH 10:33 → ERHI 18:48 → CP SOUTH 18:48
PROVIDERS: Emergency Medicine
DX: F29 Unspecified psychosis not due to a substance or known physiological condition (principal)
CPT/HCPCS: 36415; 80307; 90832; 90853; G0463-25; G0480; J0515; J1630